=== PATIENT | male | born 1990 | race Two or more races ===

== ENCOUNTER 2016-08-11 11:47 | Emergency (ER) | payer MEDICAID ==
--- NOTE | 2016-08-11 11:51 | ED Physician Chart ---
Chief Complaint/HPI - Patient Information Date Seen:: 08/11/16 Time Seen:: 11:51 Chief Complaint:: abdominal pain History of Present Illness:: 26-year-old male complains of acute, constant, aching, cramping, moderate to severe, 8 out of 10 at worst, nonradiating, mid epigastric, abdominal pain that started on Satur evening 3 days ago. Has associated nausea and vomiting. Allergies:: Allergies Allergy/AdvReac Type Severity Reaction Status Date / Time Penicillins Allergy Verified 04/15/16 15:07 Historian:: Patient Review:: Nurse's Note Reviewed Review of Systems - Review of Systems Other: Complete system review otherwise unremarkable except as noted in HPI. Past Medical History - Past Medical History Past Medical History: No significant medical hx Family History: None Social History: Non Smoker, No Alcohol, No Drug Use, Employed Surgical History: None Psychiatricy History: None Medication: None Family Medical History - Family Member Mother History Unknown: Yes Ethnicity: Living Status: Still Living Physical Exam - Physical Examination Other:: INITIAL VITAL SIGNS: Reviewed by me GENERAL: Alert and interactive. No acute distress HEAD: Head is normocephalic and atraumatic EYES: EOMI. . No scleral icterus. No conjunctival injection ENT: Moist mucous membranes. NECK: Supple. No masses. Full range of motion RESPIRATORY: No tachypnea. Clear breath sounds bilaterally. No wheezing, rales, or rhonchi CV: Regular rate and rhythm. No murmurs, rubs, or gallops ABDOMEN: Soft, non-distended, slight tenderness to palpation over the epigastric region. No guarding. No rebound. No masses. EXTREMITIES: No deformity. No cyanosis. No edema. SKIN: Warm and dry. No obvious rashes. NEUROLOGIC: Alert and oriented. Face is symmetric. Speech is normal. Moves all extremities equally. Motor and sensory distally intact. Labs/Radiology/EKG Results - Lab Results Results: Lab Results 08/11/16 08/11/16 Range/Units 12:05 12:05 WBC 6.0 (4.8-10.8) Th/cmm RBC 5.25 (4.30-5.70) Mil/cmm Hgb 15.3 (13.2-17.3) gm/dL Hct 44.9 D (39.0-49.0) % MCV 85.6 (80-99) fl MCH 29.2 (26.0-30.0) pg MCHC Differential 34.0 (28.0-36.0) pg RDW 12.5 (11.5-20.0) % Plt Count 300 (150-400) Th/cmm MPV 8.0 fl Neutrophils % 77.0 (40.0-80.0) % Lymphocytes % 13.8 L (20.0-50.0) % Monocytes % 9.0 (2.0-10.0) % Eosinophils % 0.2 (0.0-5.0) % Basophils % 0.0 (0.0-2.0) % Sodium 128 L (136-145) mEq/L Potassium 4.1 (3.5-5.1) mEq/L Chloride 98 (98-107) mEq/L Carbon Dioxide 22.6 (21.0-31.0) mEq/L Anion Gap 11.5 (7.0-16.0) BUN 7 (7-25) mg/dL Creatinine 0.7 (0.7-1.3) mg/dL Est GFR ( Amer) > 60.0 (>90) ml/min Est GFR (Non-Af Amer) > 60.0 ml/min BUN/Creatinine Ratio 10.0 Glucose 105 (70-105) mg/dL Calcium 9.4 (8.6-10.3) mg/dL Total Bilirubin 0.4 (0.3-1.0) mg/dL AST 70 H (13-39) U/L ALT 59 H (7-52) U/L Alkaline Phosphatase 51 (34-104) U/L Total Protein 7.8 (6.0-8.3) gm/dL Albumin 4.4 (4.2-5.5) gm/dL Globulin 3.4 gm/dL Albumin/Globulin Ratio 1.3 (1.0-1.8) Lipase 25 (11-82) U/L - EKG Interpretations Comments:: 12-lead EKG Interpretation by Gio Driscoll MD: Normal Sinus Rhythm with ventricular rate of 91 beats per minute Normal axis Normal intervals No acute ST or T wave changes. No obvious STEMI ED Septic Shock - . Is Septic Shock (SBP<90, OR Lactate>4 mmol\L) present?: No Reassessment (Disposition) - Reassessment Reassessment:: The patient's blood pressure was elevated (>120/80) but appears stable without evidence of hypertensive emergency or urgency. The patient was counseled about the risks hypertension urged to pursue outpatient monitoring and therapy within a week with her primary care physician. CT abdomen and pelvis is essentially unremarkable. Labs show some hyponatremia and some slight transaminitis. Otherwise no acute abnormalities. Patient received IV fluids and IV Zofran and IV Compazine and IV Toradol and GI cocktail. Symptoms greatly improved. Patient discharged. Follow up PCP 1-2 days. Gave return to ER precautions. Patient understands and agrees the plan. Reassessment Condition:: Improved - Diagnosis Diagnosis:: Acute gastroenteritis Hyponatremia Transaminitis Elevated blood pressure without the diagnosis of hypertension - Aftercare/Follow up Instructions Aftercare/Follow-Up Instructions:: Counseled pt regarding lab results/diagnosis & need follow up, Refer to Discharge Instructions - Patient Disposition Discharge/Transfer:: Home Time:: 13:35 Condition at Disposition:: Improved ED Discharge Plan - Patient Disposition Admit/Discharge/Transfer: PT DISCHARGED HOME Condition at Disposition: Improved Instructions: Viral Gastroenteritis, [id number]
[2016-08-11] MEDS ORDERED: Maalox 30 mL Cup PO ONE (11:54)
[2016-08-11] MEDS ORDERED: Donnatal Liq 5 ML UDC PO ONE (11:54)
[2016-08-11] MEDS ORDERED: Sodium Chloride 0.9% 1,000 ML IV ONE (11:54)
[2016-08-11] MEDS ORDERED: Prochlorperazine 5 mg/mL 2mL Vial IVP STA (12:03)
[2016-08-11 12:14] LABS: % EOSINOPHILS 0.2 % (0.0-5.0); % LYMPHOCYTES 13.8 % (20.0-50.0); HEMOGLOBIN 15.3 gm/dL (13.2-17.3); MEAN CELL VOLUME 85.6 fl (80-99); MEAN CORPUSCULAR HEMOGLOBIN 29.2 pg (26.0-30.0); NEUTROPHILE ABSOLUTE 4.7 Th/cmm (1.8-8.0); PLATELET COUNT 300 Th/cmm (150-400); RED BLOOD COUNT 5.25 Mil/cmm (4.30-5.70); RED CELL DISTRIBUTION WIDTH 12.5 % (11.5-20.0)
[2016-08-11 12:15] LABS: HEMATOCRIT 44.9 % (39.0-49.0)
[2016-08-11] MEDS ORDERED: SIMETHICONE 40 MG/0.6 ML BOTTLE ONE (12:30)
[2016-08-11] MEDS ORDERED: Donnatal Liq 5 ML UDC ONE (12:31)
[2016-08-11] MEDS ORDERED: Prochlorperazine 5 mg/mL 2mL Vial ONE (12:32)
[2016-08-11 12:33] LABS: ALB/GLOB RATIO 1.3 (1.0-1.8); ALKALINE PHOSPHATASE 51 U/L (34-104); ANION GAP 11.5 (7.0-16.0); BILIRUBIN,TOTAL 0.4 mg/dL (0.3-1.0); BUN - UREA NITROGEN 7 mg/dL (7-25); CALCIUM SERUM 9.4 mg/dL (8.6-10.3); CARBON DIOXIDE 22.6 mEq/L (21.0-31.0); CHLORIDE 98 mEq/L (98-107); CREATININE - SERUM 0.7 mg/dL (0.7-1.3); GLUCOSE 105 mg/dL (70-105); LIPASE 25 U/L (11-82); POTASSIUM SERUM 4.1 mEq/L (3.5-5.1); SGOT 70 U/L (13-39); SGPT/ALT 59 U/L (7-52); SODIUM SERUM 128 mEq/L (136-145)
[2016-08-11] MEDS ORDERED: Maalox 30 mL Cup ONE (12:38)
--- NOTE | 2016-08-11 14:08 | Diagnostic Imaging Report ---
CT scan of the abdomen and pelvis without intravenous contrast History: Pain Total DLP equals 317 CTDI equals 6.7 Axial sections were obtained from the xiphoid process down to the pubic symphysis. The liver demonstrates a normal size and contour. No focal lesions are seen. The spleen appears normal. No abnormalities are seen in the region of the pancreas. The kidneys appear normal bilaterally. Radiodensity noted adjacent to the cecum probably related to prior appendectomy. The exam of the pelvis demonstrates preservation of normal fat planes. No abnormal soft tissue masses. No abnormal fluid collections. Impression: No acute abnormalities
== END 2016-08-11 13:50 | disposition home or self-care (01) ==
LOC: ER 11:47
DX: K52.9 Noninfective gastroenteritis and colitis, unspecified (principal); E87.1 Hypo-osmolality and hyponatremia; R74.0 Nonspecific elevation of levels of transaminase and lactic acid dehydrogenase [LDH]; R03.0 Elevated blood-pressure reading, without diagnosis of hypertension; Z88.0 Allergy status to penicillin
CPT/HCPCS: 99285; 96374; 96375; 93005; 74176; 36415; 85025; 83690; 80053; J1885; J2405; J0780; J7030